=== PATIENT | female | born 1975 | race Hispanic/Latino ===

== ENCOUNTER 2021-11-06 09:42 | Emergency (ER) | payer MEDICARE, OTHER ==
[2021-11-06 09:48] VITALS: BP 139/72
[2021-11-06] MEDS ORDERED: IPRATROPIUM/ALBUTEROL SULFATE 3 ML AMPUL.NEB IH ONE (11:42)
[2021-11-06] MEDS ORDERED: dexAMETHasone 20 MG/5 ML VIAL IM ONE (11:42)
[2021-11-06 12:43] LABS: Basophils % (Auto) 0.4 % (0.0-1.8); Eosinophils % (Auto) 0.7 % (0.0-4.3); Hematocrit 36.9 % (30.3-42.9); Hemoglobin 12.1 gm/dl (10.1-14.3); Lymphocytes # (Auto) 0.9 K/mm3 (1.2-5.4); Lymphocytes % (Auto) 13.9 % (13.4-35.0); Mean Corpuscular HGB Conc 33 % (30-34); Mean Corpuscular Volume 93 fl (79-97); Monocytes # (Auto) 0.8 K/mm3 (0.0-0.8); Platelet Count 320 K/mm3 (140-440); Red Blood Count 3.96 M/mm3 (3.65-5.03); Red Cell Distribution Width 14.6 % (13.2-15.2)
--- NOTE | 2021-11-06 13:09 | XRay Report ---
CHEST 2 VIEWS INDICATION / CLINICAL INFORMATION: cough, wheezing. COMPARISON: None available. FINDINGS: SUPPORT DEVICES: None. HEART / MEDIASTINUM: No significant abnormality. LUNGS / PLEURA: No significant pulmonary or pleural abnormality. No pneumothorax. ADDITIONAL FINDINGS: No significant additional findings. IMPRESSION: 1. No acute findings. Signer Name: South Duffy MD Signed: 11/06/2021 1:05 PM Workstation Name: [id number]
--- NOTE | 2021-11-06 13:09 | XRay Report ---
Right foot 3 views INDICATION: Right foot pain and swelling FINDINGS: There is advanced degenerative change at the midfoot with joint space narrowing and small d orsal osteophytes. Diffuse soft tissue swelling on dorsal aspect of the foot. MTP joints and IP joint s appear normal. Small calcaneal spur is seen in the plantar fascia insertion IMPRESSION: Soft tissue swelling along the dorsal aspect of the foot with degenerative change throughout the midf oot Signer Name: Reggie Bowman MD Signed: 11/06/2021 1:04 PM Workstation Name: [id number]
[2021-11-06 13:10] LABS: Alanine Aminotransferase 8 units/L (7-56); Albumin 3.9 g/dL (3.9-5); Blood Urea Nitrogen 4 mg/dL (7-17); Hemolysis Index 2; Uric Acid 4.5 mg/dL (3.5-7.6)
[2021-11-06 13:11] LABS: BUN/Creatinine Ratio 7
--- NOTE | 2021-11-06 13:22 | Emergency Department Report ---
ED General Adult HPI - General Chief complaint: Upper Respiratory Infection Stated complaint: CHEST PAIN, COUGH, N/V/D Time Seen by Provider: 11/06/21 11:06 Source: patient, EMS Mode of arrival: Ambulatory Limitations: No Limitations - History of Present Illness Initial comments: Patient is a 46-year-old female presents emergency room complaints of a pr oductive cough that began 3 days ago. She has associated mucus production. She states that she is also having chest tightness, shortness of breath, chills. She states that she had one episode of vomiting. She is able to tolerate p.o. intake. She denies any fever or diarrhea. Patient states that she is also had right foot swelling for approximately 2 weeks. She denies any fall or injury. No past medical history apparent allergy to Haldol and aspirin. She denies any recent travel or known sick contacts. Severity scale (0 -10): 6 - Related Data Home Medications Medication Instructions Recorded Confirmed Last Taken Divalproex ER [DepaKOTE ER] 2,000 mg PO QDAY 12/14/15 11/03/16 1 Day Ago ~11/02/16 2000 Gabapentin [Neurontin] 300 mg PO TID 11/03/16 11/03/16 1 Day Ago ~11/02/16 300 carBAMazepine [TEGretol] 150 mg PO ONCE 11/03/16 11/03/16 1 Day Ago ~11/02/16 150 Previous Rx's Medication Instructions Recorded Last Taken Type Albuterol Sulfate [Proventil Hfa] 1 puff IH TID PRN #1 hfa.aer.ad 11/06/21 Unknown Rx Azithromycin 250 mg PO DAILY 5 Days #6 tablet 11/06/21 Unknown Rx Colchicine [Colcrys] 0.6 mg PO DAILY 1 Days #3 tablet 11/06/21 Unknown Rx Indomethacin [Indocin] 25 mg PO Q8H #21 capsule 11/06/21 Unknown Rx Prednisone [predniSONE 10 mg 10 mg PO .TAPER #1 tab.ds.pk 11/06/21 Unknown Rx (6-Day Pack, 21 Tabs)] Allergies Allergy/AdvReac Type Severity Reaction Status Date / Time aspirin AdvReac Unknown Verified 11/06/21 09:45 haloperidol [From Haldol] AdvReac Unknown Verified 12/14/15 01:12 haloperidol lactate AdvReac Unknown Verified 12/14/15 01:12 [From Haldol] ED Review of Systems ROS: Stated complaint: CHEST PAIN, COUGH, N/V/D Other details as noted in HPI Comment: All other systems reviewed and negative ED Past Medical Hx - Past Medical History Hx Hypertension: Yes Hx Seizures: Yes Hx Psychiatric Treatment: Yes (bipolar Disorder, schizoaffective) Additional medical history: arthritis bilat knees - Surgical History Additional Surgical History: BLADDER STENT - Social History Smoking Status: Current Every Day Smoker (4 cigarettes daily) Substance Use Type: Alcohol (no alcohol 4-5 months), Cocaine (none 4-5 months) - Medications Home Medications: Home Medications Medication Instructions Recorded Confirmed Last Taken Type Divalproex ER [DepaKOTE ER] 2,000 mg PO QDAY 12/14/15 11/03/16 1 Day Ago History ~11/02/16 2000 Gabapentin [Neurontin] 300 mg PO TID 11/03/16 11/03/16 1 Day Ago History ~11/02/16 300 carBAMazepine [TEGretol] 150 mg PO ONCE 11/03/16 11/03/16 1 Day Ago History ~11/02/16 150 Albuterol Sulfate [Proventil Hfa] 1 puff IH TID PRN #1 hfa.aer.ad 11/06/21 Unknown Rx Azithromycin 250 mg PO DAILY 5 Days #6 tablet 11/06/21 Unknown Rx Colchicine [Colcrys] 0.6 mg PO DAILY 1 Days #3 tablet 11/06/21 Unknown Rx Indomethacin [Indocin] 25 mg PO Q8H #21 capsule 11/06/21 Unknown Rx Prednisone [predniSONE 10 mg 10 mg PO .TAPER #1 tab.ds.pk 11/06/21 Unknown Rx (6-Day Pack, 21 Tabs)] ED Physical Exam - General Limitations: No Limitations General appearance: alert, in no apparent distress - Head Head exam: Present: atraumatic, normocephalic - Eye Eye exam: Present: normal appearance - ENT ENT exam: Present: mucous membranes moist - Respiratory Respiratory exam: Present: wheezes (expiratory wheezing bilaterally). Absent: respiratory distress, rales, rhonchi, stridor, chest wall tenderness, accessory muscle use, decreased breath sounds, prolonged expiratory - Cardiovascular Cardiovascular Exam: Present: regular rate, normal rhythm, normal heart sounds. Absent: systolic murmur, diastolic murmur, rubs, gallop - Extremities Exam Extremities exam: Present: other (ttp to the right dorsal foot with edema and mild increased warmth, no calf ttp, no erythema, FROM, neurovascularly intact) - Neurological Exam Neurological exam: Present: alert, oriented X3 - Psychiatric Psychiatric exam: Present: normal affect, normal mood - Skin Skin exam: Present: warm, dry ED Course Vital Signs 11/06/21 11/06/21 09:47 12:53 Temperature 98.5 F Pulse Rate 96 H Respiratory 16 Rate Respiratory 23 Rate [Posterior Bilateral Throughout] Blood Pressure 139/72 [Left] O2 Sat by Pulse 97 Oximetry ED Medical Decision Making - Lab Data Result diagrams: 11/06/21 11:50 11/06/21 11:50 - Radiology Data Radiology results: report reviewed Ordering Physician: BOB GAMEZ Date of Service: 11/06/21 Procedure(s): XR foot 3+V RT Accession Number(s): [id number] cc: BOB GAMEZ Fluoro Time In Minutes: Right foot 3 views INDICATION: Right foot pain and swelling FINDINGS: There is advanced degenerative change at the midfoot with joint space narrowing and small dorsal osteophytes. Diffuse soft tissue swelling on dorsal aspect of the foot. MTP joints and IP joints appear normal. Small calcaneal spur is seen in the plantar fascia insertion IMPRESSION: Soft tissue swelling along the dorsal aspect of the foot with degenerative change throughout the midfoot Signer Name: Reggie Bowman MD Signed: 11/06/2021 1:04 PM Workstation Name: [id number] Transcribed By: CW Dictated By: DOMENIC BOWMAN MD Electronically Authenticated By: DOMENIC BOWMAN MD Signed Date/Time: 11/06/21 1304 DD/ 1304 TD/TT: Ordering Physician: BOB GAMEZ Date of Service: 11/06/21 Procedure(s): XR chest routine 2V Accession Number(s): [id number] cc: BOB GAMEZ Fluoro Time In Minutes: CHEST 2 VIEWS INDICATION / CLINICAL INFORMATION: cough, wheezing. COMPARISON: None available. FINDINGS: SUPPORT DEVICES: None. HEART / MEDIASTINUM: No significant abnormality. LUNGS / PLEURA: No significant pulmonary or pleural abnormality. No pneumothorax. ADDITIONAL FINDINGS: No significant additional findings. IMPRESSION: 1. No acute findings. Signer Name: South Duffy MD Signed: 11/06/2021 1:05 PM Workstation Name: [id number] Transcribed By: SB Dictated By: SOUTH DUFFY MD Electronically Authenticated By: SOUTH DUFFY MD Signed Date/Time: 11/06/21 1305 DD/ 1304 TD/TT: - Medical Decision Making Patient is a 46-year-old female presents emergency room complaints of a productive cough that began 3 days ago. She has associated mucus production. She states that she is also having chest tightness, shortness of breath, chills. She states that she had one episode of vomiting. She is able to tolerate p.o. intake. She denies any fever or diarrhea. Patient states that she is also had right foot swelling for approximately 2 weeks. She denies any fall or injury. No past medical history apparent allergy to Haldol and aspirin. She denies any recent travel or known sick contacts. Vitals are stable. On exam patient has expiratory wheezing bilaterally, no respiratory distress, no accessory muscle use, ttp to the right dorsal foot with edema and mild increased warmth, no calf ttp, no erythema, FROM, neurovascularly intact. Labs are stable. Chest x-ray 1. No acute findings. X-ray right foot Soft tissue swelling along the dorsal aspect of the foot with degenerative change throughout the midfoot. Patient given nebulizer treatment and IM steroids. Went to reexamine patient and discussed results with patient and it appears patient has eloped from the emergency department. Patient eloped prior to receiving completion of medical examination and prior to discussion of results. Critical care attestation.: If time is entered above; I have spent that time in minutes in the direct care of this critically ill patient, excluding procedure time. ED Disposition Clinical Impression: Right foot pain, Swelling of right foot Acute bronchitis Qualifiers: Bronchitis organism: unspecified organism Qualified Code(s): J20.9 - Acute bronchitis, unspecified Disposition: 07 LEFT AWOL/ELOPED Is pt being admited?: No Does the pt Need Aspirin: No Condition: Undetermined Instructions: Low-Purine Eating Plan, Acute Bronchitis, Adult, Acute Bronchitis (ED) Additional Instructions: Please take medication as prescribed. Follow-up with your primary care doctor. Return to emergency room for any new or symptoms. Prescriptions: Azithromycin 250 mg PO DAILY 5 Days #6 tablet Colchicine [Colcrys] 0.6 mg PO DAILY 1 Days #3 tablet Indomethacin [Indocin] 25 mg PO Q8H #21 capsule Prednisone [predniSONE 10 mg (6-Day Pack, 21 Tabs)] 10 mg PO .TAPER #1 tab.ds.pk Albuterol Sulfate [Proventil Hfa] 1 puff IH TID PRN #1 hfa.aer.ad PRN Reason: wheezing, shortness of breath Referrals: PRIMARY CARE, [Primary Care Provider] - [facility] Time of Disposition: 13:19 Print Language: NIUEAN
== END 2021-11-06 14:36 | disposition left against medical advice (07) ==
LOC: ED 09:42
DX: J20.9 Acute bronchitis, unspecified (principal); M79.671 Pain in right foot; R22.41 Localized swelling, mass and lump, right lower limb; F17.200 Nicotine dependence, unspecified, uncomplicated; F10.20 Alcohol dependence, uncomplicated; F31.9 Bipolar disorder, unspecified; I10 Essential (primary) hypertension; Z88.8 Allergy status to other drugs, medicaments and biological substances; Z88.6 Allergy status to analgesic agent
CPT/HCPCS: 36415; 71046; 73630; 80053; 83880; 84550; 85025; 86140; 94640; 96372; 99284; J1100; 94644

== ENCOUNTER 2022-02-18 21:42 | Emergency (ER) | payer MEDICARE ==
--- NOTE | 2022-02-19 08:18 | Emergency Department Report ---
ED Female HPI - General Chief complaint: Urogenital-Female Stated complaint: VAGINAL PAIN Time Seen by Provider: 02/19/22 07:17 Source: patient, EMS Mode of arrival: Wheelchair Limitations: No Limitations - History of Present Illness Initial comments: 46-year-old female with history of underlying psych disorder presents to the ER today with complaints of vaginal irritation pain and swelling. Patient states that her symptoms have been going on for a couple months. She states that initially she was having some pain in her pelvic area, but recently is just more in the vaginal area. She states "I feel like something is falling out". She denies any rash, itching or any discharge. She states that she started her menstrual cycle 3 days ago. It has not been any different than her typical menstrual cycles. She is not currently on any control. She states that last time she had sexual intercourse was last year. She states that she saw COMPLIANCE COUNSEL about 1 month ago for routine Pap smear including her symptoms but she states that the COMPLIANCE COUNSEL did not notice any anything abnormal. MD Complaint: other (vaginal irritation, pain, swelling) -: month(s) - Related Data Home Medications Medication Instructions Recorded Confirmed Last Taken Divalproex ER [DepaKOTE ER] 2,000 mg PO QDAY 12/14/15 11/03/16 1 Day Ago ~11/02/161999 Gabapentin [Neurontin] 300 mg PO TID 11/03/16 11/03/16 1 Day Ago ~11/02/16 300 carBAMazepine [TEGretol] 150 mg PO ONCE 11/03/16 11/03/16 1 Day Ago ~11/02/16 150 Previous Rx's Medication Instructions Recorded Last Taken Type Albuterol Sulfate [Proventil Hfa] 1 puff IH TID PRN #1 hfa.aer.ad 11/06/21 Unknown Rx Azithromycin 250 mg PO DAILY 5 Days #6 tablet 11/06/21 Unknown Rx Colchicine [Colcrys] 0.6 mg PO DAILY 1 Days #3 tablet 11/06/21 Unknown Rx Indomethacin [Indocin] 25 mg PO Q8H #21 capsule 11/06/21 Unknown Rx metroNIDAZOLE [Flagyl] 500 mg PO Q12HR #14 tab 02/19/22 Unknown Rx Allergies Allergy/AdvReac Type Severity Reaction Status Date / Time aspirin AdvReac Unknown Verified 11/06/21 09:45 haloperidol [From Haldol] AdvReac Unknown Verified 12/14/15 01:12 haloperidol lactate AdvReac Unknown Verified 12/14/15 01:12 [From Haldol] ED Review of Systems ROS: Stated complaint: VAGINAL PAIN Other details as noted in HPI Comment: All other systems reviewed and negative Constitutional: denies: chills, diaphoresis, fever, malaise, weakness Eyes: denies: eye pain, eye discharge, vision change ENT: denies: ear pain, throat pain Respiratory: denies: cough, shortness of breath, SOB with exertion, SOB at rest, wheezing Cardiovascular: denies: chest pain, palpitations, dyspnea on exertion, edema, syncope, paroxysmal nocturnal dyspnea Gastrointestinal: denies: abdominal pain, nausea, diarrhea, constipation, hematemesis, melena, hematochezia Genitourinary: other (vaginal pain, swelling, itching, "feels like something about to fall out" ). denies: urgency, dysuria, frequency, hematuria, discharge, abnormal menses, dyspareunia Musculoskeletal: denies: back pain, joint swelling, arthralgia, myalgia Skin: denies: rash, lesions, change in color, change in hair/nails, pruritus Neurological: denies: headache, weakness, numbness, paresthesias, confusion, abnormal gait, vertigo Psychiatric: denies: anxiety, depression, auditory hallucinations, visual hallucinations, homicidal thoughts, suicidal thoughts Hematological/Lymphatic: denies: easy bleeding, easy bruising ED Past Medical Hx - Past Medical History Previous Medical History?: Yes Hx Hypertension: Yes Hx Seizures: Yes Hx Psychiatric Treatment: Yes (bipolar Disorder, schizoaffective) Additional medical history: arthritis bilat knees - Surgical History Past Surgical History?: Yes Additional Surgical History: BLADDER STENT - Social History Smoking Status: Current Every Day Smoker (4 cigarettes daily) Substance Use Type: Alcohol (no alcohol 4-5 months), Cocaine (none 4-5 months) - Medications Home Medications: Home Medications Medication Instructions Recorded Confirmed Last Taken Type Divalproex ER [DepaKOTE ER] 2,000 mg PO QDAY 12/14/15 11/03/16 1 Day Ago History ~11/02/161999 Gabapentin [Neurontin] 300 mg PO TID 11/03/16 11/03/16 1 Day Ago History ~11/02/16 300 carBAMazepine [TEGretol] 150 mg PO ONCE 11/03/16 11/03/16 1 Day Ago History ~11/02/16 150 Albuterol Sulfate [Proventil Hfa] 1 puff IH TID PRN #1 hfa.aer.ad 11/06/21 Unknown Rx Azithromycin 250 mg PO DAILY 5 Days #6 tablet 11/06/21 Unknown Rx Colchicine [Colcrys] 0.6 mg PO DAILY 1 Days #3 tablet 11/06/21 Unknown Rx Indomethacin [Indocin] 25 mg PO Q8H #21 capsule 11/06/21 Unknown Rx metroNIDAZOLE [Flagyl] 500 mg PO Q12HR #14 tab 02/19/22 Unknown Rx ED Physical Exam - General Limitations: No Limitations General appearance: alert, in no apparent distress, obese - Neck Neck exam: Present: normal inspection, full ROM. Absent: meningismus - Respiratory Respiratory exam: Present: normal lung sounds bilaterally. Absent: respiratory distress, wheezes, rales, rhonchi - Cardiovascular Cardiovascular Exam: Present: regular rate, normal rhythm, normal heart sounds - GI/Abdominal GI/Abdominal exam: Present: soft. Absent: distended, tenderness, guarding, rebound - External exam: Present: normal external exam, other (Sweetbread Trimmer present ) Speculum exam: Present: vaginal bleeding (mild ). Absent: vaginal discharge, cervical discharge, foreign body, laceration Bi-manual exam: Present: normal bi-manual exam - Neurological Exam Neurological exam: Present: alert, oriented X3, CN II-XII intact, normal gait - Psychiatric Psychiatric exam: Present: normal affect, normal mood - Skin Skin exam: Present: intact ED Course Vital Signs 02/18/22 21:51 Temperature 98.4 F Pulse Rate 82 Respiratory 16 Rate Blood Pressure 160/80 [Right] O2 Sat by Pulse 98 Oximetry ED Medical Decision Making - Medical Decision Making Patient well-appearing, nontoxic and not in any significant distress. She appears well-hydrated. She is currently mentally stable. Urinalysis negative for UTI. hCG negative. Wet prep shows positive BV. Patient pelvic exam was unremarkable. Abdomen is soft and nontender. Patient will be started on Flagyl for BV. Recommend that she follows up with COMPLIANCE COUNSEL. Patient was stable at time of discharge. Critical care attestation.: If time is entered above; I have spent that time in minutes in the direct care of this critically ill patient, excluding procedure time. ED Disposition Clinical Impression: Bacterial vaginosis Disposition: 01 HOME / SELF CARE / HOMELESS Is pt being admited?: No Does the pt Need Aspirin: No Condition: Stable Instructions: Bacterial Vaginosis, Bacterial Vaginosis (ED) Additional Instructions: Take the flagyl as prescribed. Do not drink alcohol while taking the Flagyl. Take the Flagyl with food as it can cause upset stomach. Follow-up with the COMPLIANCE COUNSEL. Return to the ER if your symptoms changes or worsens in any way. Prescriptions: metroNIDAZOLE [Flagyl] 500 mg PO Q12HR #14 tab Referrals: PRIMARY CARE, [Primary Care Provider] - 3-5 Days Forms: STI Treatment and Prevention Time of Disposition: 09:01
[2022-02-19 08:37] LABS: WBC,Urine < 1.0 /HPF (0.0-6.0)
[2022-02-19 08:38] LABS: HCG Qualitative,Urine Negative (Negative)
[2022-02-19 08:43] LABS: Bilirubin,Urine Negative (Negative); Blood,Urine Trace (Negative); Color,Urine Straw (Yellow)
[2022-02-19 08:44] LABS: Protein,Urine <15 mg/dL mg/dL (Negative)
[2022-02-19 09:14] VITALS: BP 152/82
== END 2022-02-19 09:14 | disposition home or self-care (01) ==
LOC: ED 21:42
DX: N76.0 Acute vaginitis (principal); B96.89 Other specified bacterial agents as the cause of diseases classified elsewhere; I10 Essential (primary) hypertension; F31.9 Bipolar disorder, unspecified; F20.9 Schizophrenia, unspecified; F17.210 Nicotine dependence, cigarettes, uncomplicated; Z72.89 Other problems related to lifestyle; Z88.6 Allergy status to analgesic agent; Z88.8 Allergy status to other drugs, medicaments and biological substances; Z79.899 Other long term (current) drug therapy
CPT/HCPCS: 81001; 81025; 87210; 99284

== ENCOUNTER 2022-08-18 22:29 | Emergency (ER) | payer MEDICARE ==
[2022-08-19 08:01] VITALS: BP 137/84
[2022-08-19] MEDS ORDERED: ACETAMINOPHEN 325 MG TAB PO ONE (08:23)
--- NOTE | 2022-08-19 08:31 | Emergency Department Report ---
ED General Adult HPI - General Chief complaint: Pain General Stated complaint: FULL BODY PAIN Time Seen by Provider: 08/19/22 07:26 Source: patient, EMS Mode of arrival: Stretcher Limitations: No Limitations - History of Present Illness Initial comments: 46-year-old female with past medical history bipolar schizophrenia reports to ER general body pain. Patient denies any injury to her body. No recent falls. Patient denies any cough cold congestion. No fever no weakness no numbness no chills. Patient she is just wants something for the body pain and requesting Tylenol. No other acute signs or symptoms reported. Severity scale (0 -10): 0 - Related Data Home Medications Medication Instructions Recorded Confirmed Last Taken Divalproex ER [DepaKOTE ER] 2,000 mg PO QDAY 12/14/15 11/03/16 1 Day Ago ~11/02/161999 Gabapentin [Neurontin] 300 mg PO TID 11/03/16 11/03/16 1 Day Ago ~11/02/16 300 carBAMazepine [TEGretol] 150 mg PO ONCE 11/03/16 11/03/16 1 Day Ago ~11/02/16 150 Previous Rx's Medication Instructions Recorded Last Taken Type Albuterol Sulfate [Proventil Hfa] 1 puff IH TID PRN #1 hfa.aer.ad 11/06/21 Unknown Rx Azithromycin 250 mg PO DAILY 5 Days #6 tablet 11/06/21 Unknown Rx Colchicine [Colcrys] 0.6 mg PO DAILY 1 Days #3 tablet 11/06/21 Unknown Rx Indomethacin [Indocin] 25 mg PO Q8H #21 capsule 11/06/21 Unknown Rx metroNIDAZOLE [Flagyl] 500 mg PO Q12HR #14 tab 02/19/22 Unknown Rx Allergies Allergy/AdvReac Type Severity Reaction Status Date / Time aspirin AdvReac Unknown Verified 11/06/21 09:45 haloperidol [From Haldol] AdvReac Unknown Verified 12/14/15 01:12 haloperidol lactate AdvReac Unknown Verified 12/14/15 01:12 [From Haldol] ED Review of Systems ROS: Stated complaint: FULL BODY PAIN Other details as noted in HPI Comment: All other systems reviewed and negative Psychiatric: denies: homicidal thoughts, suicidal thoughts ED Past Medical Hx - Past Medical History Previous Medical History?: Yes Hx Hypertension: Yes Hx Seizures: Yes Hx Psychiatric Treatment: Yes (bipolar Disorder, schizoaffective) Additional medical history: arthritis bilat knees - Surgical History Additional Surgical History: BLADDER STENT - Social History Smoking Status: Current Every Day Smoker (4 cigarettes daily) Substance Use Type: Alcohol (no alcohol 4-5 months), Cocaine (none 4-5 months) - Medications Home Medications: Home Medications Medication Instructions Recorded Confirmed Last Taken Type Divalproex ER [DepaKOTE ER] 2,000 mg PO QDAY 12/14/15 11/03/16 1 Day Ago History ~11/02/161999 Gabapentin [Neurontin] 300 mg PO TID 11/03/16 11/03/16 1 Day Ago History ~11/02/16 300 carBAMazepine [TEGretol] 150 mg PO ONCE 11/03/16 11/03/16 1 Day Ago History ~11/02/16 150 Albuterol Sulfate [Proventil Hfa] 1 puff IH TID PRN #1 hfa.aer.ad 11/06/21 Unknown Rx Azithromycin 250 mg PO DAILY 5 Days #6 tablet 11/06/21 Unknown Rx Colchicine [Colcrys] 0.6 mg PO DAILY 1 Days #3 tablet 11/06/21 Unknown Rx Indomethacin [Indocin] 25 mg PO Q8H #21 capsule 11/06/21 Unknown Rx metroNIDAZOLE [Flagyl] 500 mg PO Q12HR #14 tab 02/19/22 Unknown Rx ED Physical Exam - General Limitations: No Limitations General appearance: alert, in no apparent distress - Head Head exam: Present: atraumatic, normocephalic - Eye Eye exam: Present: normal appearance - ENT ENT exam: Present: mucous membranes moist - Neck Neck exam: Present: normal inspection - Respiratory Respiratory exam: Present: normal lung sounds bilaterally. Absent: respiratory distress - Cardiovascular Cardiovascular Exam: Present: regular rate, normal rhythm. Absent: systolic murmur, diastolic murmur, rubs, gallop - GI/Abdominal GI/Abdominal exam: Present: soft, normal bowel sounds - Extremities Exam Extremities exam: Present: normal inspection - Back Exam Back exam: Present: normal inspection - Neurological Exam Neurological exam: Present: alert, oriented X3 - Psychiatric Psychiatric exam: Present: normal affect, normal mood. Absent: homicidal ideation, suicidal ideation - Skin Skin exam: Present: warm, dry, intact, normal color. Absent: rash ED Course Vital Signs 08/18/22 08/19/22 08/19/22 23:46 03:20 07:59 Temperature 98.1 F 98.5 F 97.8 F Pulse Rate 82 110 H 89 Respiratory 16 15 18 Rate Blood Pressure 130/90 126/78 137/84 [Right] O2 Sat by Pulse 99 98 99 Oximetry ED Medical Decision Making - Medical Decision Making 46-year-old female with past medical history bipolar schizophrenia reports to ER general body pain. Patient denies any injury to her body. No recent falls. Patient denies any cough cold congestion. No fever no weakness no numbness no chills. Patient she is just wants something for the body pain and requesting Tylenol. No other acute signs or symptoms reported. On physical exam no acute clinical findings noted patient is neurologically intact no acute mental health concerns at this time. No SI no HI reported. At 8:01 AM patient informed nurse that if she is discharged she will kill herself as she has been placed out of her caregivers house. At that moment the primary care nurse informed the charge nurse as well as the primary provider of this patient in the ER today. At 8:05 AM this provider and her primary nurse went into asked the patient about her statement in regards to suicidal ideation. Patient denies making no statements and that she wants to leave and she has no thoughts of hurting herself. Patient reports she does not want to stay and she wants to be di scharged patient is requesting homeless resources as well as a change in close. Patient denies any plan of suicide ideation or homicidal ideation. Patient informed to be truthful and that this ER department is here to help her and provide her the best care. Patient again reports 3 more time that she is not suicidal and that she just wants to leave and have resources for homeless shelters. At this time patient denies suicidal homicidal ideations. Patient is alert oriented x4. Patient is coherent. Patient is able to make decisions for herself. Patient will be given a change of close. As well as given something to eat and drink here in ER as well as given outpatient resources for homeless shelters. Patient agrees with plan of care verbalized understanding. Patient informed if she is to have any signs and symptoms of that she wants to hurt herself or hurt anyone else to report back to the ER as quickly as possible as we are here to make sure she gets the best care. Patient is a for discharge. Vital Signs 08/18/22 08/19/22 08/19/22 23:46 03:20 07:59 Temperature 98.1 F 98.5 F 97.8 F Pulse Rate 82 110 H 89 Respiratory 16 15 18 Rate Blood Pressure 130/90 126/78 137/84 [Right] O2 Sat by Pulse 99 98 99 Oximetry Critical care attestation.: If time is entered above; I have spent that time in minutes in the direct care of this critically ill patient, excluding procedure time. ED Disposition Clinical Impression: Generalized body aches Disposition: HOME / SELF CARE / HOMELESS Is pt being admited?: No Condition: Stable Instructions: Musculoskeletal Pain
== END 2022-08-19 11:55 | disposition home or self-care (01) ==
LOC: ED 22:29
DX: M79.18 Myalgia, other site (principal); I10 Essential (primary) hypertension; F31.9 Bipolar disorder, unspecified; F20.9 Schizophrenia, unspecified; F17.210 Nicotine dependence, cigarettes, uncomplicated; Z72.89 Other problems related to lifestyle; Z79.899 Other long term (current) drug therapy; Z88.6 Allergy status to analgesic agent; Z88.8 Allergy status to other drugs, medicaments and biological substances
CPT/HCPCS: 99283